=== PATIENT | female | born 1965 | race Caucasian/White ===

== ENCOUNTER 2017-06-05 11:45 | Emergency (ER) | payer OTHER ==
[~2017-06-05] VITALS: Ht 167.6 cm; Wt 73.0 kg
[2017-06-05] MEDS ORDERED: AMITRIPTYLIN25 MG PO (12:33)
[2017-06-05] MEDS ORDERED: RANITIDINE150 M1 PO (12:33)
[2017-06-05] MEDS ORDERED: OXYBUTYNIN5 M1 PO (12:33)
[2017-06-05] MEDS ORDERED: BACLOFEN10 MG PO (12:34)
[2017-06-05] MEDS ORDERED: CELECOXIB100 M1 PO (12:35)
[2017-06-05 12:57] LABS: HEMATOCRIT 38.4 % (37.0-47.0); HEMOGLOBIN 12.8 g/dl (12.0-16.0); IMMATURE GRANULOCYTES 0.7 % (0.0-1.0); MEAN CELL VOLUME 87.3 fL CALC (80.0-100.0); MEAN CORPUSCULAR HGB 29.1 pG CALC (26.0-32.0); MEAN CORPUSCULAR HGB CONC 33.3 g/L CALC (32.0-36.0); NEUT# 3.44 thou/uL (2.00-7.15); RED BLOOD COUNT 4.4 mill/uL (4.20-5.60); RED CELL DISTRI WIDTH 11.9 % (11.5-15.5)
[2017-06-05 13:03] LABS: ALBUMIN 4.2 g/dL (3.2-5.0); ALKALINE PHOSPHATASE 58 u/l (38-126); ANION GAP 14 (6-22 (CALC)); BILIRUBIN, TOTAL 0.4 mg/dL (0.0-1.4); BUN 17 mg/dL (7-17); BUN/CREATININE RATIO 21 (12-20 (CALC)); CARBON DIOXIDE 27 mmol/l (22-30); CHLORIDE 107 mmol/l (95-108); CREATININE 0.8 mg/dL (0.5-1.0); GFR > 60 ML/MIN (>=60 (CALC)); GFR FOR AFR.AMER. > 60 ML/MIN (>=60 (CALC)); POTASSIUM 4.2 mmol/l (3.5-5.1); SGOT/AST 28 u/l (14-36); SGPT/ALT 31 u/l (9-52); SODIUM 144 mmol/l (137-146); TOTAL PROTEIN 6.7 g/dL (6.3-8.2)
[2017-06-05 13:58] LABS: BARBITURATES NEGATIVE (NEGATIVE); COCAINE NEGATIVE (NEGATIVE); METHADONE NEGATIVE (NEGATIVE); OXCYCODONE NEGATIVE (NEGATIVE); TETRAHYDROCANNABIONOL NEGATIVE (NEGATIVE); TRICYLIC ANTIDEPRESSANTS POSITIVE (NEGATIVE)
[2017-06-05] MEDS ORDERED: ULTRAM50 M1 PO (14:33)
[2017-06-05 14:43] VITALS: BP 130/76
== END 2017-06-05 14:41 | disposition home or self-care (01) | DRG 93 ==
LOC: ED 11:45
PROVIDERS: Emergency Medicine
DX: G89.29 Other chronic pain (principal); I25.2 Old myocardial infarction; M79.601 Pain in right arm; M79.602 Pain in left arm; R42 Dizziness and giddiness